=== PATIENT | female | born 1945 | race Caucasian/White ===

== ENCOUNTER 2018-11-21 12:09 | Observation (INO) | payer SELFPAY ==
[2018-11-21] MEDS ORDERED: ASPIRIN PO ONE (12:46)
[2018-11-21 13:18] LABS: Basophils # (Auto) 0.1 K/mm3 (0.0-0.1); Basophils % (Auto) 0.6 % (0.0-1.8); Eosinophils # (Auto) 0.5 K/mm3 (0.0-0.4); Eosinophils % (Auto) 6.1 % (0.0-4.3); Hematocrit 36.9 % (30.3-42.9); Hemoglobin 12.5 gm/dl (10.1-14.3); Lymphocytes % (Auto) 22.8 % (13.4-35.0); Mean Corpuscular HGB Conc 34 % (30-34); Mean Corpuscular Volume 89 fl (79-97); Monocytes # (Auto) 0.4 K/mm3 (0.0-0.8); Platelet Count 277 K/mm3 (140-440); Red Blood Count 4.17 M/mm3 (3.65-5.03); Red Cell Distribution Width 13.9 % (13.2-15.2)
[2018-11-21] MEDS ORDERED: APRESOLINE ONE (13:20)
[2018-11-21] MEDS ORDERED: APRESOLINE IV ONE (13:21)
[2018-11-21 13:25] LABS: Bacteria,Urine 1+ /HPF (Negative); Bilirubin,Urine NEG (Negative); Blood,Urine SM (Negative); Color,Urine Straw (Yellow); Mucus,Urine FEW /HPF; Urobilinogen,Urine < 2.0 mg/dL (<2.0)
--- NOTE | 2018-11-21 13:28 | Emergency Department Report ---
ED Chest Pain HPI - General Chief Complaint: Chest Pain Stated Complaint: SHORTNESS OF BREATH/CHEST PAIN Time Seen by Provider: 11/21/18 12:48 Source: patient, family, EMS Mode of arrival: Stretcher Limitations: No Limitations - History of Present Illness Initial Comments: 73-year-old female presents to the emergency department with complaint of some midsternal to left-sided chest pain with radiation to the left arm, and shortness of breath that has been going on since yesterday. The shortness of breath resolved in route but the other symptoms continue. She feels like there is some numbness of the left arm. She took a baby aspirin, which she takes daily. She has a past medical history of hypertension and insulin-dependent diabetes. She does not have a primary care physician as she is visiting here from [place]. Severity scale (0 -10): 7 - Related Data Home Medications Medication Instructions Recorded Confirmed Last Taken Ibuprofen [Motrin] 600 mg PO Q8H PRN 11/21/18 11/21/18 Unknown Insulin Aspart Protam & Aspart 10 unit SQ BID 11/21/18 11/21/18 Unknown [NovoLOG Mix 70-30 Flexpen] Losartan/Hydrochlorothiazide 1 tab PO QDAY 11/21/18 11/21/18 Unknown [Hyzaar 50-12.5 TAB] Metformin HCl 1,000 mg PO BID 11/21/18 11/21/18 Unknown Ranitidine HCl [Acid Control] 150 mg PO QHS 11/21/18 11/21/18 Unknown Allergies Allergy/AdvReac Type Severity Reaction Status Date / Time No Known Allergies Allergy Unverified 11/21/18 12:45 Heart Score - HEART Score History: Moderately suspicious EKG: Normal Age: > 65 Risk factors: 1-2 risk factors Troponin: < normal limit HEART Score: 4 - Critical Actions Critical Actions: 4-6 pts:12-16.6% risk of adverse cardiac event. Should be admitted ED Review of Systems ROS: Stated complaint: SHORTNESS OF BREATH/CHEST PAIN Other details as noted in HPI Comment: All other systems reviewed and negative Constitutional: denies: chills, fever Eyes: denies: eye pain, vision change ENT: denies: ear pain, throat pain Respiratory: shortness of breath. denies: wheezing Cardiovascular: chest pain, edema Gastrointestinal: denies: abdominal pain, vomiting Genitourinary: denies: urgency, dysuria Musculoskeletal: denies: back pain, arthralgia Skin: denies: rash, lesions Neurological: numbness. denies: headache ED Past Medical Hx - Past Medical History Hx Hypertension: Yes Hx Diabetes: Yes - Social History Smoking Status: Unknown if ever smoked - Medications Home Medications: Home Medications Medication Instructions Recorded Confirmed Last Taken Type Ibuprofen [Motrin] 600 mg PO Q8H PRN 11/21/18 11/21/18 Unknown History Insulin Aspart Protam & Aspart 10 unit SQ BID 11/21/18 11/21/18 Unknown History [NovoLOG Mix 70-30 Flexpen] Losartan/Hydrochlorothiazide 1 tab PO QDAY 11/21/18 11/21/18 Unknown History [Hyzaar 50-12.5 TAB] Metformin HCl 1,000 mg PO BID 11/21/18 11/21/18 Unknown History Ranitidine HCl [Acid Control] 150 mg PO QHS 11/21/18 11/21/18 Unknown History ED Physical Exam - General Limitations: No Limitations - Other Other exam information: GENERAL: The patient is well-developed well-nourished. HEENT: Normocephalic. Atraumatic. Patient has moist mucous membranes. EYES: Extraocular motions are intact. Pupils are equal and reactive to light bilaterally. NECK: Supple. Trachea is midline. CHEST/LUNGS: Clear to auscultation. There is no respiratory distress noted. HEART/CARDIOVASCULAR: Regular. There is no tachycardia. There is no obvious murmur. ABDOMEN: Abdomen is soft, nontender. Patient has normal bowel sounds. There is no abdominal distention. SKIN: Skin is warm and dry. NEURO: The patient is awake, alert, and oriented. The patient is cooperative. The patient has no focal neurologic deficits. The patient has normal speech. MUSCULOSKELETAL: There is no tenderness or deformity. There is no evidence of acute injury. ED Course Vital Signs 11/21/18 11/21/18 11/21/18 12:59 13:00 13:22 Pulse Rate 70 72 Respiratory 14 14 Rate Blood Pressure Blood Pressure 202/72 [Right] O2 Sat by Pulse 100 100 Oximetry 11/21/18 14:46 Pulse Rate 64 Respiratory 14 Rate Blood Pressure 175/76 Blood Pressure [Right] O2 Sat by Pulse 99 Oximetry MARGARITA score - Margarita Score Age > 65: (1) Yes Aspirin use within the Past 7 Days: (1) Yes 3 or more CAD Risk Factors: (0) No 2 or more Angina events in past 24 hrs: (1) Yes Known CAD with more than 50% Stenosis: (0) No Elevated Cardiac Markers: (0) No ST Deviation Greater than 0.5mm: (0) No MARGARITA Score: 3 ED Medical Decision Making - Lab Data Result diagrams: 11/21/18 13:04 11/21/18 13:04 - EKG Data -: EKG Interpreted by Me EKG shows normal: sinus rhythm, axis, intervals, QRS complexes (low voltage), ST-T waves Rate: normal - EKG Data When compared to previous EKG there are: previous EKG unavailable Interpretation: normal EKG - Radiology Data Radiology results: image reviewed interpreted by me: Chest x-ray does not show any pneumothorax, pleural effusion, pneumonia or obvious focal consolidation. - Medical Decision Making Patient presents with midsternal left-sided chest pain and shortness of breath. EKG does not show any signs of ST elevation NE. Chest x-ray does not show any focal consolidation, pneumothorax, pneumonia, pleural effusions. Labs thus far have been mostly unremarkable except for a slightly elevated d-dimer. The patient will have a CT angiography of the chest done. She will be admitted to [facility] for further evaluation and treatment and was accepted for admission by the hospitalist, Dr. Gillespie. - Differential Diagnosis NE, PE, costochondritis, GERD, pneumonia Critical Care Time: No Critical care attestation.: If time is entered above; I have spent that time in minutes in the direct care of this critically ill patient, excluding procedure time. ED Disposition Clinical Impression: Hypertensive urgency, Acute chest pain Diabetes Qualifiers: Diabetes mellitus type: type 1 Disposition: OP ADMIT IP TO THIS HOSP Is pt being admited?: Yes Condition: Fair Time of Disposition: 15:42
[2018-11-21 13:37] LABS: BUN/Creatinine Ratio 33; Blood Urea Nitrogen 26 mg/dL (7-17); Calcium 8.8 mg/dL (8.4-10.2); Hemolysis Index 13
--- NOTE | 2018-11-21 13:55 | History and Physical Report ---
History of Present Illness Chief complaint: I have pain in my chest History of present illness: 73 YO Female with Obesity Hypoventilation, HTN, DM presents to ED for evaluation. Pt states that she has experienced pain in her chest over the past 2 days with worsening symptoms over the past 8 hours. Pt states that pain is 7/10, midsternal, radiates to the left arm, intermittent initially but has now become constant over the past 8 hours, worsened with exertion, not relieved with rest. Pt acknowledges decreased exercise tolerance, shortness of breath, dypsnea on exertion. EMS notified and upon arrival the patient was found to be in distress. Pt transported to [facility] ED. Pt seen and evaluated in ED and found to have Angina as well as symptoms consistent with Diastolic CHF. Pt admitted to telemetry. Cardiology consulted in ED. Pt denies fever, chills, Palpitations, NVD, Trauma, Skin rash, BRBPR, Productive cough, prolonged travel/immobility, individual/family history of DVT/PE/Blood Clotting Disorders. No prior admissions for review. All listed medication reconciled at time of admission. Past History Past Medical History: diabetes, hypertension Past Surgical History: No surgical history, Other (reviewed) Social history: single Family history: diabetes, hypertension Medications and Allergies Allergies Allergy/AdvReac Type Severity Reaction Status Date / Time No Known Allergies Allergy Unverified 11/21/18 12:45 Home Medications Medication Instructions Recorded Confirmed Last Taken Type Ibuprofen [Motrin] 600 mg PO Q8H PRN 11/21/18 11/21/18 Unknown History Insulin Aspart Protam & Aspart 10 unit SQ BID 11/21/18 11/21/18 Unknown History [NovoLOG Mix 70-30 Flexpen] Losartan/Hydrochlorothiazide 1 tab PO QDAY 11/21/18 11/21/18 Unknown History [Hyzaar 50-12.5 TAB] Metformin HCl 1,000 mg PO BID 11/21/18 11/21/18 Unknown History Ranitidine HCl [Acid Control] 150 mg PO QHS 11/21/18 11/21/18 Unknown History Review of Systems Constitutional: no weight loss, no weight gain, no fever, no chills Ears, nose, mouth and throat: no ear pain, no ear discharge, no tinnitis, no decreased hearing, no nose pain Breasts: no change in shape, no swelling, no mass Cardiovascular: chest pain, lightheadedness, shortness of breath, dyspnea on exertion, high blood pressure, decreased exercise tolerance, no palpitations, no rapid/irregular heart beat, no edema, no syncope Respiratory: no cough, no cough with sputum, no excessive sputum Gastrointestinal: no nausea, no vomiting, no diarrhea, no constipation Genitourinary Female: no pelvic pain, no flank pain, no menorrhagia, no dysuria, no urinary frequency, no stress incontinence Rectal: no pain, no incontinence, no bleeding Musculoskeletal: no neck stiffness, no neck pain, no shooting arm pain Integumentary: no rash, no pruritis, no redness, no sores, no wounds Neurological: no transient paralysis, no paralysis, no weakness, no parathesias, no numbness, no tingling, no seizures Psychiatric: no memory loss, no change in sleep habits, no sleep disturbances, no insomnia Endocrine: no cold intolerance, no heat intolerance, no polyphagia, no excessive thirst, no polyuria, no nocturia Hematologic/Lymphatic: no easy bruising, no easy bleeding, no lymphadenopathy, no lymphedema Allergic/Immunologic: no urticaria, no allergic rhinitis, no wheezing, no persistent infections, no anaphylaxis, no angioedema Exam - Constitutional Vitals: Temp Pulse Resp BP Pulse Ox 72 14 202/72 100 11/21/18 13:22 11/21/18 13:00 11/21/18 13:00 11/21/18 13:00 General appearance: Present: mild distress, obese - EENT Eyes: Present: PERRL ENT: hearing intact, clear oral mucosa - Neck Neck: Present: supple, normal ROM - Respiratory Respiratory effort: normal Respiratory: bilateral: CTA - Cardiovascular Heart Sounds: Present: S1 & S2. Absent: rub, click - Extremities Extremities: pulses symmetrical, No edema Peripheral Pulses: within normal limits - Abdominal General gastrointestinal: Present: soft, non-tender, non-distended, normal bowel sounds Female genitourinary: Present: normal - Integumentary Integumentary: Present: clear, warm, dry - Musculoskeletal Musculoskeletal: gait normal, strength equal bilaterally - Psychiatric Psychiatric: appropriate mood/affect, intact judgment & insight - Neurologic Neurologic: CNII-XII intact, moves all extremities Results - Labs CBC & Chem 7: 11/21/18 13:04 11/21/18 13:04 Labs: Abnormal lab results 11/21/18 11/21/18 11/21/18 Range/Units 13:04 13:04 13:04 Eos % (Auto) 6.1 H (0.0-4.3) % Eos # 0.5 H (0.0-0.4) K/mm3 D-Dimer 338.64 H (0-234) ng/mlDDU Chloride 107.3 H (98-107) mmol/L Carbon Dioxide 19 L (22-30) mmol/L BUN 26 H (7-17) mg/dL Glucose 155 H (65-100) mg/dL Assessment and Plan - Patient Problems (1) Angina at rest Current Visit: Yes Status: Acute Plan to address problem: Serial cardiac enxymes, ekg, telemetry, morphine, supplemental oxygen, nitro, aspirin, cardiology consulted in ED. (2) Diastolic CHF Current Visit: Yes Status: Acute Qualifiers: Heart failure chronicity: acute Qualified Code(s): I50.31 - Acute diastolic (congestive) heart failure Plan to address problem: Admit to telemetry, Echo, cardiology consulted in ED, strict I/O, daily weight, BNP, chest x ray, bnp, pulse oximetry (3) Diabetes Current Visit: Yes Status: Acute Qualifiers: Diabetes mellitus type: type 1 Plan to address problem: ADA diet, Sliding scale insulin, accu check (4) HTN (hypertension) Current Visit: Yes Status: Acute Qualifiers: Hypertension type: essential hypertension Qualified Code(s): I10 - Essential (primary) hypertension Plan to address problem: monitor bp q shift, continue medical management (5) DVT prophylaxis Current Visit: Yes Status: Acute Plan to address problem: SCD to BLE while in bed, prophylactic lovenox
[2018-11-21] MEDS ORDERED: NITROSTAT SL PRN (13:57)
[2018-11-21] MEDS ORDERED: TYLENOL PO PRN (13:57)
[2018-11-21] MEDS ORDERED: ZOFRAN IV PRN (13:57)
[2018-11-21] MEDS ORDERED: SODIUM CHLORIDE FLUSH SYRINGE 10 ML IV PRN ×2 (13:57)
[2018-11-21] MEDS ORDERED: BABY ASPIRIN PO STA (13:57)
[2018-11-21] MEDS ORDERED: MORPHINE IV PRN (13:57)
[2018-11-21] MEDS ORDERED: APRESOLINE IV PRN (14:01)
[2018-11-21] MEDS ORDERED: D50W (25GM) Syringe IV PRN (14:58)
[2018-11-21] MEDS ORDERED: BABY ASPIRIN ONE (15:34)
--- NOTE | 2018-11-21 15:43 | XRay Report ---
PROCEDURE: XR CHEST 1V AP TECHNIQUE: Single frontal view of the chest HISTORY: Chest Pain COMPARISONS: None. FINDINGS: The cardiomediastinal silhouette is normal in appearance. The lungs are clear without focal consolidation. No pleural effusion or pneumothorax. No acute bony or soft tissue abnormality. IMPRESSION: No acute cardiopulmonary disease. This document is electronically signed by Rachel Estrada MD., November 21 2018 03:42:09 PM ET
[2018-11-21] MEDS: HumaLOG SUB-Q SCH (17:15)
--- NOTE | 2018-11-21 17:48 | Cat Scan Report ---
PROCEDURE: CT ANGIO CHEST TECHNIQUE: Following administration of IV contrast axial helical imaging was performed through the c hest with sagittal and coronal reformatted images and maximum intensity projection images obtained. HISTORY: CP, elevated dimer COMPARISONS: Chest x-ray also performed today FINDINGS: Visualization of fine detail in portions of the chest is limited by motion artifact. There are areas of groundglass pulmonary consolidation in the right upper lobe and lower lobes bilate rally which may represent pulmonary infiltrates or mosaic perfusion. There is an approximately 4.7 mm nodular density in the right upper lobe. The trachea and bronchi are patent. There is no evidence of pneumothorax or pleural fluid collection. The heart is enlarged. There is atherosclerotic vascular calcification of the coronary arteries. The thoracic aorta is normal caliber. There is no evidence of intrathoracic adenopathy. No filling defects are demonstrated within the central pulmonary arteries to suggest the presence of central pulmonary artery emboli. However, segmental pulmonary artery emboli could be missed or overca lled due to motion artifact. The visualized portion of the upper abdomen is notable for a right renal hypodensities that most like ly represents a cyst. The bony structures are notable for spondylitic change of the thoracic spine with dextrocurvature. IMPRESSION: 1. No evidence of central pulmonary artery emboli. However, segmental pulmonary artery emboli could b e missed or overcalled due to motion artifact. 2. Groundglass pulmonary consolidation right upper lobe and lower lobes bilaterally which may represe nt pulmonary infiltrates or mosaic perfusion. 3. Approximately 4.7 mm nodular density right upper lobe. Comparison with previous chest CT is recomm ended. Alternatively repeat CT imaging in 6 months would be helpful for further evaluation for the st atic or dynamic nature of this finding. 4. Cardiomegaly with atherosclerotic vascular calcification of the coronary arteries. 5. Spondylitic change thoracic spine with dextrocurvature. . This document is electronically signed by Tiffany Ann MD., November 21 2018 05:46:48 PM ET
[2018-11-21] MEDS ORDERED: NON-FORMULARY (Ranitidine Hcl [Acid Control] 150 MG) PO SCH (22:00)
[2018-11-21] MEDS: SODIUM CHLORIDE FLUSH SYRINGE 10 ML IV SCH (22:11)
[2018-11-21] MEDS: LOVENOX SUB-Q SCH (22:11)
[2018-11-21] MEDS: PEPCID PO SCH (22:11)
[2018-11-22] MEDS: HumaLOG SUB-Q SCH ×4 (06:35→17:18)
[2018-11-22 06:44] LABS: Basophils # (Auto) 0.1 K/mm3 (0.0-0.1); Basophils % (Auto) 1.2 % (0.0-1.8); Eosinophils # (Auto) 0.8 K/mm3 (0.0-0.4); Eosinophils % (Auto) 9.9 % (0.0-4.3); Hematocrit 36.8 % (30.3-42.9); Hemoglobin 12.5 gm/dl (10.1-14.3); Lymphocytes # (Auto) 2.9 K/mm3 (1.2-5.4); Lymphocytes % (Auto) 37.2 % (13.4-35.0); Mean Corpuscular HGB Conc 34 % (30-34); Mean Corpuscular Volume 89 fl (79-97); Monocytes # (Auto) 0.5 K/mm3 (0.0-0.8); Monocytes % (Auto) 6.3 % (0.0-7.3); Platelet Count 270 K/mm3 (140-440); Red Blood Count 4.13 M/mm3 (3.65-5.03); Red Cell Distribution Width 14.2 % (13.2-15.2)
[2018-11-22 07:10] LABS: Alanine Aminotransferase 11 units/L (7-56); Albumin 3.6 g/dL (3.9-5); BUN/Creatinine Ratio 28; Blood Urea Nitrogen 25 mg/dL (7-17); Calcium 8.7 mg/dL (8.4-10.2); Hemolysis Index 3
[2018-11-22] MEDS ORDERED: HYDROCHLOROTHIAZIDE PO SCH (10:00)
[2018-11-22] MEDS ORDERED: LOSARTAN PO SCH (10:00)
--- NOTE | 2018-11-22 10:55 | Consultation ---
History of Present Illness Consult date: 11/22/18 Consult reason: cardiac arrest, congestive heart failure History of present illness: Patient is a 73 year old woman whom is visiting from [place]. She has a history of Diabetes mellitus and Hypertension. She presents to this hospital with reports of shortness of breath and chest pain admitted for further evaluation. Cardiac consultation was requested. Patient denies prior cardiac history and has not had any recent cardiac workup. A chest x-ray shows no interstitial edema but a chest CTA suggests right upper lobe and bilateral lower lobe pulmonary infiltrates. There is also reports of a right upper lobe nodular measuring 4.7 mm. No evidence of pulmonary emboli. 12 lead EKG shows sinus rhythm, no acute ischemic changes. Past History Past Medical History: diabetes, hypertension Social history: single Family history: diabetes, hypertension Medications and Allergies Allergies Allergy/AdvReac Type Severity Reaction Status Date / Time No Known Allergies Allergy Unverified 11/21/18 12:45 Home Medications Medication Instructions Recorded Confirmed Last Taken Type Ibuprofen [Motrin] 600 mg PO Q8H PRN 11/21/18 11/21/18 Unknown History Insulin Aspart Protam & Aspart 10 unit SQ BID 11/21/18 11/21/18 Unknown History [NovoLOG Mix 70-30 Flexpen] Losartan/Hydrochlorothiazide 1 tab PO QDAY 11/21/18 11/21/18 Unknown History [Hyzaar 50-12.5 TAB] Metformin HCl 1,000 mg PO BID 11/21/18 11/21/18 Unknown History Ranitidine HCl [Acid Control] 150 mg PO QHS 11/21/18 11/21/18 Unknown History Active Meds: Active Medications Acetaminophen (Tylenol) 650 mg PO Q4H PRN PRN Reason: Pain MILD(1-3)/Fever >100.5/MEDRANO Last Admin: 11/21/18 22:10 Dose: 650 mg Documented by: Atorvastatin Calcium (Lipitor) 40 mg PO QHS [facility] Last Admin: 11/21/18 22:11 Dose: 40 mg Documented by: Dextrose (D50w (25gm) Syringe) 50 ml IV PRN PRN PRN Reason: Hypoglycemia Enoxaparin Sodium (Lovenox) 40 mg SUB-Q QDAY@2200 [facility] Last Admin: 11/21/18 22:11 Dose: 40 mg Documented by: Famotidine (Pepcid) 20 mg PO BID [facility] Last Admin: 11/21/18 22:11 Dose: 20 mg Documented by: Hydralazine HCl (Apresoline) 10 mg IV Q6HR PRN PRN Reason: HTN SYS>155 Hydrochlorothiazide (Hctz) 12.5 mg PO QDAY [facility] Insulin Human Lispro (Humalog) 0 unit SUB-Q Q6HR [facility]; Protocol Last Admin: 11/22/18 06:35 Dose: Not Given Documented by: Losartan Potassium (Cozaar) 50 mg PO QDAY [facility] Miscellaneous Medication (Ranitidine Hcl [Acid Control]) 150 mg PO QHS [facility] Last Admin: 11/21/18 22:00 Dose: Not Given Documented by: Morphine Sulfate (Morphine) 2 mg IV Q4H PRN PRN Reason: Pain, Moderate (4-6) Nitroglycerin (Nitrostat) 0.4 mg SL Q5M PRN PRN Reason: Chest Pain Ondansetron HCl (Zofran) 4 mg IV Q8H PRN PRN Reason: Nausea And Vomiting Sodium Chloride (Sodium Chloride Flush Syringe 10 Ml) 10 ml IV BID [facility] Last Admin: 11/21/18 22:11 Dose: 10 ml Documented by: Sodium Chloride (Sodium Chloride Flush Syringe 10 Ml) 10 ml IV PRN PRN PRN Reason: LINE FLUSH Sodium Chloride (Sodium Chloride Flush Syringe 10 Ml) 10 ml IV PRN PRN PRN Reason: LINE FLUSH Physical Examination Vital Signs Resp Pulse Ox 14 100 11/21/18 12:59 11/21/18 12:59 General appearance: no acute distress HEENT: Positive: PERRL Neck: Positive: trachea midline Cardiac: Positive: Reg Rate and Rhythm Lungs: Positive: Decreased Breath Sounds Neuro: Positive: Grossly Intact Extremities: Absent: edema Results 11/22/18 06:04 11/22/18 06:04 Cardiac Enzymes 11/22/18 Range/Units 06:04 AST 12 (5-40) units/L CBC 11/21/18 11/22/18 Range/Units 13:04 06:04 WBC 8.9 7.8 (4.5-11.0) K/mm3 RBC 4.17 4.13 (3.65-5.03) M/mm3 Hgb 12.5 12.5 (10.1-14.3) gm/dl Hct 36.9 36.8 (30.3-42.9) % Plt Count 277 270 (140-440) K/mm3 Lymph # 2.0 2.9 (1.2-5.4) K/mm3 [place] # 0.4 0.5 (0.0-0.8) K/mm3 Eos # 0.5 H 0.8 H (0.0-0.4) K/mm3 Baso # 0.1 0.1 (0.0-0.1) K/mm3 Comprehensive Metabolic Panel 11/21/18 11/22/18 Range/Units 13:04 06:04 Sodium 140 143 (137-145) mmol/L Potassium 4.9 5.2 H (3.6-5.0) mmol/L Chloride 107.3 H 108.4 H (98-107) mmol/L Carbon Dioxide 19 L 24 (22-30) mmol/L BUN 26 H 25 H (7-17) mg/dL Creatinine 0.8 0.9 (0.7-1.2) mg/dL Glucose 155 H 191 H (65-100) mg/dL Calcium 8.8 8.7 (8.4-10.2) mg/dL AST 12 (5-40) units/L ALT 11 (7-56) units/L Alkaline Phosphatase 70 (35-129) units/L Total Protein 6.6 (6.3-8.2) g/dL Albumin 3.6 L (3.9-5) g/dL Assessment and Plan Shortness of breath chest CTA suggests right upper lobe and bilateral lower lobe pulmonary infiltrates. There is also reports of a right upper lobe nodular measuring 4.7 mm. No evidence of pulmonary emboli. Chest pain Hypertension Diabetes
[2018-11-22] MEDS: COZAAR PO SCH (11:01)
[2018-11-22] MEDS: SODIUM CHLORIDE FLUSH SYRINGE 10 ML IV SCH ×2 (11:02→21:19)
[2018-11-22] MEDS: HCTZ PO SCH (11:02)
[2018-11-22] MEDS: PEPCID PO SCH ×2 (11:02→21:18)
--- NOTE | 2018-11-22 15:16 | Progress Note ---
Assessment and Plan Assessment and plan: Patient is 73 yo Kinyarwanda speaking woman from [place] visiting her daughter Yoli (who speaks Polish well and at bedside) with a history of obesity, HTN, DM type 2 and Diabetes retinopathy who presented with left sided chest pains (1) Angina at rest, atypical most likely costocondritis Current Visit: Yes Status: Acute Plan to address problem: d/w Cardiology, stress test in am (2) Diastolic CHF Current Visit: Yes Status: Acute Qualifiers: Heart failure chronicity: acute Qualified Code(s): I50.31 - Acute diastolic (congestive) heart failure Plan to address problem: Admit to telemetry, Echo, cardiology consulted in ED, strict I/O, daily weight, BNP, chest x ray, bnp, pulse oximetry (3) Diabetes Current Visit: Yes Status: Acute Qualifiers: Diabetes mellitus type: type 1 Plan to address problem: ADA diet, Sliding scale insulin, accu check (4) HTN (hypertension) Current Visit: Yes Status: Acute Qualifiers: Hypertension type: essential hypertension Qualified Code(s): I10 - Essential (primary) hypertension Plan to address problem: monitor bp q shift, continue medical management (5) DVT prophylaxis Current Visit: Yes Status: Acute Plan to address problem: SCD to BLE while in bed, prophylactic lovenox stress test in am History Interval history: Patient was seen and examined. Follow-up on current diagnosis chest pains, resolved. Overnight uneventful. Patient denies any chest pain, shortness breath, nausea/vomiting or severe headaches. Imaging, nursing note, chart, labs and old chart reviewed. Discussed with patient. Hospitalist Physical - Physical exam Narrative exam: Gen: WDWN, NAD, Awake, Alert, Orientated HEENT: NCAT, EOMI, PERRL, OP Clear Neck: supple, no adenopathy, no thyromegaly, no JVD CVS/Heart: RRR, normal S1S2, pulses present bilaterally Chest/Lungs: CTA B, Symmetrical chest expansion, good air entry bilaterally, reproducible left chest wall tenderness GI/Abdomen: soft, NTND, good bowel sounds, no guarding or rebound /Bladder: no suprapubic tenderness, no CVA or paraspinal tenderness Extermity/Skin: no c/c/e, no obvious rash MSK: FROM x 4 Neuro: CN 2-12 grossly intact, no new focal deficits Psych: calm - Constitutional Vitals: Temp Pulse Resp BP Pulse Ox 97.5 F L 63 20 153/55 95 11/22/18 12:39 11/22/18 12:39 11/22/18 12:39 11/22/18 12:39 11/22/18 12:39 General appearance: Present: no acute distress Results - Labs CBC & Chem 7: 11/22/18 06:04 11/22/18 06:04 Labs: Laboratory Last Values WBC 7.8 K/mm3 (4.5-11.0) 11/22/18 06:04 RBC 4.13 M/mm3 (3.65-5.03) 11/22/18 06:04 Hgb 12.5 gm/dl (10.1-14.3) 11/22/18 06:04 Hct 36.8 % (30.3-42.9) 11/22/18 06:04 MCV 89 fl (79-97) 11/22/18 06:04 MCH 30 pg (28-32) 11/22/18 06:04 MCHC 34 % (30-34) 11/22/18 06:04 RDW 14.2 % (13.2-15.2) 11/22/18 06:04 Plt Count 270 K/mm3 (140-440) 11/22/18 06:04 Lymph % (Auto) 37.2 % (13.4-35.0) H 11/22/18 06:04 [place] % (Auto) 6.3 % (0.0-7.3) 11/22/18 06:04 Eos % (Auto) 9.9 % (0.0-4.3) H 11/22/18 06:04 Baso % (Auto) 1.2 % (0.0-1.8) 11/22/18 06:04 Lymph # 2.9 K/mm3 (1.2-5.4) 11/22/18 06:04 [place] # 0.5 K/mm3 (0.0-0.8) 11/22/18 06:04 Eos # 0.8 K/mm3 (0.0-0.4) H 11/22/18 06:04 Baso # 0.1 K/mm3 (0.0-0.1) 11/22/18 06:04 Seg Neutrophils % 45.4 % (40.0-70.0) 11/22/18 06:04 Seg Neutrophils # 3.6 K/mm3 (1.8-7.7) 11/22/18 06:04 D-Dimer 338.64 ng/mlDDU (0-234) H 11/21/18 13:04 Sodium 143 mmol/L (137-145) 11/22/18 06:04 Potassium 5.2 mmol/L (3.6-5.0) H 11/22/18 06:04 Chloride 108.4 mmol/L (98-107) H 11/22/18 06:04 Carbon Dioxide 24 mmol/L (22-30) 11/22/18 06:04 Anion Gap 16 mmol/L 11/22/18 06:04 BUN 25 mg/dL (7-17) H 11/22/18 06:04 Creatinine 0.9 mg/dL (0.7-1.2) 11/22/18 06:04 Estimated GFR > 60 ml/min 11/22/18 06:04 BUN/Creatinine Ratio 28 % 11/22/18 06:04 Glucose 191 mg/dL (65-100) H 11/22/18 06:04 POC Glucose 162 (70-105) H 11/22/18 11:40 Calcium 8.7 mg/dL (8.4-10.2) 11/22/18 06:04 Total Bilirubin 0.60 mg/dL (0.1-1.2) 11/22/18 06:04 AST 12 units/L (5-40) 11/22/18 06:04 ALT 11 units/L (7-56) 11/22/18 06:04 Alkaline Phosphatase 70 units/L (35-129) 11/22/18 06:04 Troponin T < 0.010 ng/mL (0.00-0.029) 11/21/18 18:56 NT-Pro-B Natriuret Pep 274.3 pg/mL (0-900) 11/21/18 15:20 Total Protein 6.6 g/dL (6.3-8.2) 11/22/18 06:04 Albumin 3.6 g/dL (3.9-5) L 11/22/18 06:04 Albumin/Globulin Ratio 1.2 % 11/22/18 06:04 Urine Color Straw (Yellow) 11/21/18 12:59 Urine Turbidity Clear (Clear) 11/21/18 12:59 Urine pH 6.0 (5.0-7.0) 11/21/18 12:59 Ur Specific [place] 1.007 (1.003-1.030) 11/21/18 12:59 Urine Protein 30 mg/dl mg/dL (Negative) 11/21/18 12:59 Urine Glucose (UA) >=500 mg/dL (Negative) 11/21/18 12:59 Urine Ketones Neg mg/dL (Negative) 11/21/18 12:59 Urine Blood Sm (Negative) 11/21/18 12:59 Urine Nitrite Neg (Negative) 11/21/18 12:59 Urine Bilirubin Neg (Negative) 11/21/18 12:59 Urine Urobilinogen < 2.0 mg/dL (<2.0) 11/21/18 12:59 Ur Leukocyte Esterase Neg (Negative) 11/21/18 12:59 Urine WBC (Auto) 1.0 /HPF (0.0-6.0) 11/21/18 12:59 Urine RBC (Auto) 1.0 /HPF (0.0-6.0) 11/21/18 12:59 U Epithel Cells (Auto) 2.0 /HPF (0-13.0) 11/21/18 12:59 Urine Bacteria (Auto) 1+ /HPF (Negative) 11/21/18 12:59 Urine Mucus Few /HPF 11/21/18 12:59 Active Medications - Current Medications Current Medications: Generic Name Dose Route Start Last Admin Trade Name Freq PRN Reason Stop Dose Admin Acetaminophen 650 mg 11/21/18 13:57 11/21/18 22:10 Tylenol PO 650 mg Q4H PRN Administration Pain MILD(1-3)/Fever >100.5/MEDRANO Atorvastatin Calcium 40 mg 11/21/18 22:00 11/21/18 22:11 Lipitor PO 40 mg QHS TAYLOR Administration Dextrose 50 ml 11/21/18 14:58 D50w (25gm) Syringe IV PRN PRN Hypoglycemia Enoxaparin Sodium 40 mg 11/21/18 22:00 11/21/18 22:11 Lovenox SUB-Q 40 mg QDAY@2200 TAYLOR Administration Famotidine 20 mg 11/21/18 22:00 04/09/19 11:02 Pepcid PO 20 mg BID TAYLOR Administration Hydralazine HCl 10 mg 11/21/18 14:01 Apresoline IV Q6HR PRN HTN SYS>155 Hydrochlorothiazide 12.5 mg 11/22/18 10:00 11/22/18 11:02 Hctz PO 12.5 mg QDAY TAYLOR Administration Insulin Human Lispro 0 unit 11/21/18 18:00 11/22/18 12:24 Humalog SUB-Q Not Given Q6HR [facility] Protocol Losartan Potassium 50 mg 11/22/18 10:00 11/22/18 11:01 Cozaar PO 50 mg QDAY TAYLOR Administration Morphine Sulfate 2 mg 11/21/18 13:57 Morphine IV Q4H PRN Pain, Moderate (4-6) Nitroglycerin 0.4 mg 11/21/18 13:57 Nitrostat SL Q5M PRN Chest Pain Ondansetron HCl 4 mg 11/21/18 13:57 Zofran IV Q8H PRN Nausea And Vomiting Sodium Chloride 10 ml 11/21/18 22:00 11/22/18 11:02 Sodium Chloride Flush Syringe 10 Ml IV 10 ml BID TAYLOR Administration Sodium Chloride 10 ml 11/21/18 13:57 Sodium Chloride Flush Syringe 10 Ml IV PRN PRN LINE FLUSH
[2018-11-22] MEDS: LOVENOX SUB-Q SCH (21:18)
[2018-11-23] MEDS: HumaLOG SUB-Q SCH ×4 (00:25→17:23)
[2018-11-23] MEDS ORDERED: LEXISCAN IV ONE ×2 (09:13→09:21)
--- NOTE | 2018-11-23 13:04 | Progress Note ---
Assessment and Plan Shortness of breath chest CTA suggests right upper lobe and bilateral lower lobe pulmonary infiltrates. There is also reports of a right upper lobe nodular measuring 4.7 mm. No evidence of pulmonary emboli. Chest pain Normal MPI this admission Normal LVEF Hypertension Diabetes Recommendations: No further cardiac work-up is needed Subjective Date of service: 11/23/18 Principal diagnosis: Shortness of breath Interval history: Patient has no cardiac complaints No events on tele Objective Vital Signs Temp Pulse Pulse Resp BP Pulse Ox 11/23/18 10:25 141/55 11/23/18 10:23 137/55 11/23/18 10:21 141/56 11/23/18 10:20 116/56 11/23/18 10:16 136/57 11/23/18 10:14 152/56 11/23/18 10:05 153/62 11/23/18 09:19 98 11/23/18 08:50 98.0 F 16 143/55 11/23/18 04:24 97.3 F L 67 20 118/60 92 11/23/18 01:12 98.2 F 62 18 156/59 95 11/22/18 22:00 64 64 18 98 11/22/18 21:08 98 11/22/18 19:31 97.8 F 62 20 138/43 96 11/22/18 18:02 97.6 F 11/22/18 18:00 66 20 164/44 97 - Physical Examination HEENT: Positive: PERRL Neck: Positive: trachea midline Cardiac: Positive: Reg Rate and Rhythm Lungs: Positive: Normal Exam Neuro: Positive: Grossly Intact Extremities: Absent: edema
[2018-11-23] MEDS: COZAAR PO SCH (13:11)
[2018-11-23] MEDS: HCTZ PO SCH (13:12)
[2018-11-23] MEDS: SODIUM CHLORIDE FLUSH SYRINGE 10 ML IV SCH (13:12)
[2018-11-23] MEDS: PEPCID PO SCH (13:12)
--- NOTE | 2018-11-23 16:23 | Discharge Summary ---
Providers - Providers Date of Admission: 11/21/18 13:57 Date of discharge: 11/23/18 Attending physician: MAYUR PARISI 11/21/18 Consult to Cardiac Rehabilitation [CONS] Routine Reason For Exam: Phase I 11/21/18 13:57 Consult to Cardiology [CONS] Routine Consulting Provider: FLO MARTINEZ Reason For Exam: chf/angina Primary care physician: DENA GREEN Hospitalization Condition: Stable Hospital course: Patient is 73 yo Maltese speaking woman from [place] visiting her daughter Yoli (who speaks German well, was the [employer]) with a history of obesity, HTN, DM type 2 and Diabetes retinopathy who presented with left sided chest pains and SOB. * CTA chest IMPRESSION: 1. No evidence of central pulmonary artery emboli. However, segmental pulmonary artery emboli could, be missed or overcalled due to motion artifact. 2. Groundglass pulmonary consolidation right upper lobe and lower lobes bilaterally which may represent pulmonary infiltrates or mosaic perfusion. 3. Approximately 4.7 mm nodular density right upper lobe. Comparison with previous chest CT is recommended. Alternatively repeat CT imaging in 6 months would be helpful for further evaluation for the static or dynamic nature of this finding. 4. Cardiomegaly with atherosclerotic vascular calcification of the coronary arteries. 5. Spondylitic change thoracic spine with dextrocurvature. -Angina at rest, atypical most likely costocondritis Current Visit: Yes Status: Acute Plan to address problem: d/w Cardiology, stress test unremarkable -Diastolic CHF ruled out Current Visit: Yes Status: Acute Qualifiers: Heart failure chronicity: acute Qualified Code(s): I50.31 - Acute diastolic (congestive) heart failure Plan to address problem: Admit to telemetry, Echo, cardiology consulted in ED, strict I/O, daily weight, BNP, chest x ray, bnp, pulse oximetry -Diabetes Current Visit: Yes Status: Acute Qualifiers: Diabetes mellitus type: type 1 Plan to address problem: ADA diet, Sliding scale insulin, accu check -HTN (hypertension) Current Visit: Yes Status: Acute Qualifiers: Hypertension type: essential hypertension Qualified Code(s): I10 - Essential (primary) hypertension Plan to address problem: monitor bp q shift, continue medical management -DVT prophylaxis Current Visit: Yes Status: Acute Plan to address problem: SCD to BLE while in bed, prophylactic lovenox -Incidental 4.7mm RUL nodule: out patient Pulmonology consult with Dr. Moyer -Bilateral lung infiltrates, suspected bilateral CAP, poa and not CHF empiric treat with abx/levaquin x 7 days -Mild hyperkalemia with normal renal function repeat levels Disposition: DC-01 TO HOME OR SELFCARE Time spent for discharge: 35 minutes Core Measure Documentation - Palliative Care Palliative Care/ Comfort Measures: Not Applicable - Core Measures Any of the following diagnoses?: none - VTE Discharge Requirements Deep Vein Thrombosis/Pulmonary Embolism Present on Admission: No Has pt received <5 days of overlap therapy or INR<2.0: No Anticoagulant overlap therapy prescribed at discharge: No Contraindication No Overlap Therapy order at DC: Not Indicated Exam - Physical Exam Narrative exam: Gen: WDWN, NAD, Awake, Alert, Orientated HEENT: NCAT, EOMI, PERRL, OP Clear Neck: supple, no adenopathy, no thyromegaly, no JVD CVS/Heart: RRR, normal S1S2, pulses present bilaterally Chest/Lungs: CTA B, Symmetrical chest expansion, good air entry bilaterally, reproducible left chest wall tenderness GI/Abdomen: soft, NTND, good bowel sounds, no guarding or rebound /Bladder: no suprapubic tenderness, no CVA or paraspinal tenderness Extermity/Skin: no c/c/e, no obvious rash MSK: FROM x 4 Neuro: CN 2-12 grossly intact, no new focal deficits Psych: calm - Constitutional Vitals: Temp Pulse Resp BP Pulse Ox 98.0 F 59 L 16 155/59 98 11/23/18 08:50 11/23/18 13:11 11/23/18 08:50 11/23/18 13:11 11/23/18 09:19 Plan Activity: other (no strenous activity until cleared by PCP) Diet: low salt, diabetic Special Instructions: record daily BP diary, record blood sugar diary Additional Instructions: You have a 4.7 mm right upper lung nodule and will need to see a Lung doctor Dr. Moyer as soon as possible. Follow up with: PRIMARY CAREMD [Referring] - 7 Days MARIA DOLORES MOYER MD [Staff Physician] - 7 Days Prescriptions: AtorvaSTATin [Lipitor] 40 mg PO QHS #30 tablet Losartan/Hydrochlorothiazide [Hyzaar 50-12.5 TAB] 1 tab PO QDAY #30 tablet levoFLOXacin [Levaquin] 750 mg PO QDAY #7 tablet Aspirin [Lo-Dose Aspirin EC] 81 mg PO QDAY #30 tablet. Metformin HCl 1,000 mg PO BID #60 tablet Insulin Aspart Protam & Aspart [NovoLOG Mix 70-30 Flexpen] 10 unit SQ BID #30 [email or web address]
[2018-11-23 16:30] VITALS: BP 162/44
--- NOTE | 2018-11-24 00:54 | Treadmill Report ---
STRESS TEST INDICATION: Chest pain. FINDINGS: There is no scintigraphic evidence of myocardial ischemia. The left ventricle is normal in size and systolic function. The left ventricular ejection fraction is measured at 68%. Normal wall motion and wall thickening is noted on gated imaging. CONCLUSION: Normal perfusion scan. JOB# [id number] ROXIE/SHANIA
== END 2018-11-23 18:40 | disposition home or self-care (01) ==
LOC: ED 12:09 → 4A 13:57
PROVIDERS: ADMIT Internal Medicine; ATTEND Internal Medicine
DX: I20.8 Other forms of angina pectoris (principal); I50.30 Unspecified diastolic (congestive) heart failure; I11.0 Hypertensive heart disease with heart failure; E11.9 Type 2 diabetes mellitus without complications; E66.9 Obesity, unspecified; Z79.899 Other long term (current) drug therapy
CPT/HCPCS: 36415; 71045; 71275; 78452; 80048; 80053; 81001; 82962; 83880; 84132; 84484; 85025; 85379; 93005; 93010; 93017; 93306; 96372; 96374; 96376; 99284; A9270; A9502; G0378; J0360; J1650; J2785; J3246; Q9967